=== PATIENT | female | born 1985 | race African-American/Black ===

== ENCOUNTER 2016-12-25 17:04 | Emergency (ER) | payer BC ==
[~2016-12-25] VITALS: Ht 144.8 cm; Wt 81.6 kg
[2016-12-25 17:12] VITALS: BP 137/77
[2016-12-25] MEDS ORDERED: NAPR500T8 PO (17:16)
[2016-12-25] MEDS ORDERED: ACET-704 PO (17:16)
[2016-12-25] MEDS ORDERED: AMOX875T PO (17:16)
--- NOTE | 2016-12-25 17:17 | PHYS DOC ---
Adult General Chief Complaint Chief Complaint: DENTAL PROBLEM HPI HPI Patient is a 31 year old female with history of hypertension who presents today with left upper gum dental pain that began yesterday. Patient states her wisdom tooth is growing. Patient states she has an appointment with her dentist next week and the dentist sent her to the emergency room for pain management as well as antibiotics. Patient denies any fever or trismus. Review of Systems Review of Systems Constitutional: Denies fever or chills [] Eyes: Denies change in visual acuity, redness, or eye pain [] HENT: Dental pain : Denies dysuria or hematuria [] Musculoskeletal: Denies back pain or joint pain [] Integument: Denies rash or skin lesions [] Neurologic: Denies headache, focal weakness or sensory changes [] Endocrine: Denies polyuria or polydipsia [] Physical Exam Physical Exam Constitutional: Well developed, well nourished, no acute distress, non-toxic appearance. [] HENT: Normocephalic, atraumatic, bilateral external ears normal, oropharynx moist, no oral exudates, nose normal. [] left wisdom tooth is cutting through gum with no gum redness. Scattered dental carriers throughout her teeth. Skin: Warm, dry, no erythema, no rash. [] Back: No tenderness, no CVA tenderness. [] Extremities: No tenderness, no cyanosis, no clubbing, ROM intact, no edema. [] Neurologic: Alert and oriented X 3, normal motor function, normal sensory function, no focal deficits noted. [] Psychologic: Affect normal, judgement normal, mood normal. [] EKG EKG [] Radiology/Procedures Radiology/Procedures [] Course & Med Decision Making Course & Med Decision Making Pertinent Labs and Imaging studies reviewed. (See chart for details) Patient is in the ED with dental pain from a wisdom tooth that has started growing. She was sent to the ED by the dentist for antibiotics and pain medicine. She was discharged with amoxicillin, naproxen, Tylenol 3 and follow-up with her dentist next week. Dragon Disclaimer Dragon Disclaimer This electronic medical record was generated, in whole or in part, using a voice recognition dictation system. Departure Departure Impression: Primary Impression: Dentalgia Additional Impression: Dental caries Disposition: 01 HOME, SELF-CARE Condition: STABLE Patient Instructions: Dental Caries Additional Instructions: You were seen for dental pain and dental caries. Follow-up with your dentist next week. Complete your antibiotics. Scripts Naproxen (NAPROXEN) 500 Mg Tablet. 1 TAB PO BID, #60 TAB 2 Refills Prov: HA WILSON APRN 12/25/16 Acetaminophen With Codeine (TYLENOL WITH CODEINE #3 TABLET) 1 Each Tablet 1 TAB PO PRN Q6HRS Y for PAIN, #30 TAB Prov: HA WILSON APRN 12/25/16 Amoxicillin (AMOXICILLIN) 875 Mg Tablet 1 TAB PO BID, #20 TAB Prov: HA WILSON APRN 12/25/16 Problem Qualifiers HA WILSON APRN December 25, 2016 17:17
== END 2016-12-25 17:27 | disposition home or self-care (01) ==
LOC: ER 17:27
DX: K02.9 Dental caries, unspecified (principal); K08.89 Other specified disorders of teeth and supporting structures; I10 Essential (primary) hypertension
CPT/HCPCS: 99283

== ENCOUNTER 2017-07-01 08:00 | Emergency (ER) | payer BC ==
[~2017-07-01] VITALS: Ht 144.8 cm; Wt 85.3 kg
[~2017-07-01 08:00] MED LIST: ACET-704 PO; AMOX875T PO; NAPR500T8 PO
[2017-07-01 08:08] VITALS: BP 146/94
[2017-07-01 08:21] LABS: BILIRUBIN,URINE NEGATIVE (NEG); GLUCOSE,URINE NEGATIVE (NEG); NITRITE,URINE NEGATIVE (NEG); PH,URINE 6.5; PROTEIN,URINE NEGATIVE (NEG-TRACE); UROBILINOGEN,URINE 0.2 mg/dL (0.2 mg/dL)
--- NOTE | 2017-07-01 08:24 | PHYS DOC ---
Past Medical History Past Medical History: Hypertension, Kidney Stone Past Surgical History: No Surgical History Alcohol Use: None Drug Use: None Adult General Chief Complaint Chief Complaint: FLANK PAIN HPI HPI Patient is a 31 year old female presents to the emergency department stating she's been having left flank since 7:00 last night. She states that she has vomited 5 times since last night. She states she's had chills denies any fever. She states that the pain is sharp in nature with no radiation. She states that pain is 7 out of 10. Patient states she took a naproxen around 8:00 last night no relief. Patient denies any abdominal pain denies any diarrhea. States she is taking medicines in the past with the last one being approximately one year ago. She denies any history of lithotripsy. She denies having a urologist. Review of Systems Review of Systems Constitutional: Denies fever or chills [] Eyes: Denies change in visual acuity, redness, or eye pain [] HENT: Denies nasal congestion or sore throat [] Respiratory: Denies cough or shortness of breath [] Cardiovascular: No additional information not addressed in HPI [] GI: Denies abdominal pain, nausea, vomiting, bloody stools or diarrhea [] : Denies dysuria or hematuria [] Musculoskeletal: c/o left flank pain Integument: Denies rash or skin lesions [] Neurologic: Denies headache, focal weakness or sensory changes [] Endocrine: Denies polyuria or polydipsia [] All other systems were reviewed and found to be within normal limits, except as documented in this note. Current Medications Current Medications Current Medications Medications (Trade) Dose Ordered Sig/Alexander Start Time Stop Time Status Last Admin Dose Admin Ketorolac Tromethamine (Toradol) 30 mg 1X ONCE 07/01/17 08:30 07/01/17 08:40 DC 07/01/17 08:59 30 MG Ondansetron HCl (Zofran) 4 mg 1X ONCE 07/01/17 08:30 07/01/17 08:40 DC 07/01/17 09:00 4 MG Sodium Chloride 1,000 ml @ 1,000 mls/hr 1X ONCE 07/01/17 08:30 07/01/17 09:29 DC 07/01/17 08:59 1,000 MLS/HR Allergies Allergies Allergies Coded Allergies Type Severity Reaction Last Updated Verified No Known Drug Allergies 12/25/16 No Physical Exam Physical Exam Constitutional: Well developed, well nourished, no acute distress, non-toxic appearance. [] HENT: Normocephalic, atraumatic, bilateral external ears normal, oropharynx moist, no oral exudates, nose normal. [] Eyes: PERRLA, EOMI, conjunctiva normal, no discharge. [] Neck: Normal range of motion, no tenderness, supple, no stridor. [] Cardiovascular:Heart rate regular rhythm, no murmur [] Lungs & Thorax: Bilateral breath sounds clear to auscultation [] Abdomen: Bowel sounds normal, soft, no tenderness, no masses, no pulsatile masses. [] Skin: Warm, dry, no erythema, no rash. [] Back: No tenderness, left CVA tenderness. [] Extremities: No tenderness, no cyanosis, no clubbing, ROM intact, no edema. [] Neurologic: Alert and oriented X 3, normal motor function, normal sensory function, no focal deficits noted. [] Psychologic: Affect normal, judgement normal, mood normal. [] Current Patient Data Vital Signs Vital Signs Date Time Temp Pulse Resp B/P (MAP) Pulse Ox O2 Delivery O2 Flow Rate FiO2 07/01/17 08:08 98.6 87 18 146/94 (111) 99 Room Air 98.6 Lab Values Laboratory Tests Test 07/01/17 08:00 07/01/17 08:13 07/01/17 09:20 Urine Collection Type Unknown Urine Color Yellow Urine Clarity Clear Urine pH 6.5 Urine Specific Rohwer 1.020 Urine Protein Negative mg/dL (NEG-TRACE) Urine Glucose (UA) Negative mg/dL (NEG) Urine Ketones (Stick) Negative mg/dL (NEG) Urine Blood Large (NEG) Urine Nitrite Negative (NEG) Urine Bilirubin Negative (NEG) Urine Urobilinogen Dipstick 0.2 mg/dL (0.2 mg/dL) Urine Leukocyte Esterase Small (NEG) Urine RBC Tntc /HPF (0-2) Urine WBC 1-4 /HPF (0-4) Urine Bacteria 0 /HPF (0-FEW) Urine Mucus Marked /LPF POC Urine HCG, Qualitative Hcg negative (Negative) White Blood Count 5.2 x10^3/uL (4.0-11.0) Red Blood Count 3.71 x10^6/uL (3.50-5.40) Hemoglobin 11.1 g/dL (12.0-15.5) L Hematocrit 33.4 % (36.0-47.0) L Mean Corpuscular Volume 90 fL (79-100) Mean Corpuscular Hemoglobin 30 pg (25-35) Mean Corpuscular Hemoglobin Concent 33 g/dL (31-37) Red Cell Distribution Width 14.9 % (11.5-14.5) H Platelet Count 285 x10^3/uL (140-400) Neutrophils (%) (Auto) 58 % (31-73) Lymphocytes (%) (Auto) 33 % (24-48) Monocytes (%) (Auto) 8 % (0-9) Eosinophils (%) (Auto) 1 % (0-3) Basophils (%) (Auto) 1 % (0-3) Neutrophils # (Auto) 3.0 x10^3uL (1.8-7.7) Lymphocytes # (Auto) 1.7 x10^3/uL (1.0-4.8) Monocytes # (Auto) 0.4 x10^3/uL (0.0-1.1) Eosinophils # (Auto) 0.1 x10^3/uL (0.0-0.7) Basophils # (Auto) 0.0 x10^3/uL (0.0-0.2) Sodium Level 144 mmol/L (136-145) Potassium Level 4.1 mmol/L (3.5-5.1) Chloride Level 107 mmol/L (98-107) Carbon Dioxide Level 29 mmol/L (21-32) Anion Gap 8 (6-14) Blood Urea Nitrogen 9 mg/dL (7-20) Creatinine 0.6 mg/dL (0.6-1.0) Estimated GFR (Cockcroft-Gault) 139.3 BUN/Creatinine Ratio 15 (6-20) Glucose Level 87 mg/dL (70-99) Calcium Level 8.6 mg/dL (8.5-10.1) Total Bilirubin 0.2 mg/dL (0.2-1.0) Aspartate Amino Transferase (AST) 20 U/L (15-37) Alanine Aminotransferase (ALT) 18 U/L (14-59) Alkaline Phosphatase 60 U/L (46-116) Total Protein 8.0 g/dL (6.4-8.2) Albumin 3.2 g/dL (3.4-5.0) L Albumin/Globulin Ratio 0.7 (1.0-1.7) L Laboratory Tests 07/01/17 09:20 Laboratory Tests 07/01/17 09:20 EKG EKG [] Radiology/Procedures Radiology/Procedures [facility] [address] [place] [address] IMAGING REPORT Signed PATIENT: ELIZABETH BARRIENTOS ACCOUNT: [id number] : 1985 LOCATION: ER AGE: 31 SEX: F EXAM STATUS: REG ER ORD. PHYSICIAN: DALTON RODRIGUEZ APRN REASON: left flank pain hx of kidney stones PROCEDURE: CT ABDOMEN PELVIS WO CONTRAST CT abdomen and pelvis without contrast 07/01/2017 Clinical indication: Left flank pain. Comparison: None. Technique: Multiple CT images of the abdomen and pelvis were obtained without contrast according to standard protocol PQRS Compliance Statement: One or more of the following individualized dose reduction techniques were utilized for this examination: 1. Automated exposure control 2. Adjustment of the mA and/or kV according to patient size 3. Use of iterative reconstruction technique Abdomen and pelvis findings: Heart size is normal. Visualized lung bases are clear. Evaluation of the solid abdominal pelvic viscera, lymphadenopathy and vasculature is limited in the absence of intravenous contrast. Unenhanced contours of the liver, spleen, adrenal glands, pancreas and kidneys are grossly unremarkable. There is an 8 mm calcification in the left hemipelvis favored to represent a phlebolith. No nephrolithiasis. No hydroureteronephrosis. Mildly distended and unopacified urine bladder unremarkable with no intraluminal radiopaque calculi. Prior cholecystectomy. Abdominal aorta is normal in caliber. Appendix is normal in appearance. Small and large bowel loops are normal in caliber without obstruction. No abdominal free fluid. There is diastases of the anterior rectus abdominis musculature. No definite abdominal or pelvic lymphadenopathy. Uterus is present, though incompletely evaluated by CT. There are no destructive osseous lesions. Impression: 1. No nephrolithiasis or hydroureteronephrosis. 2. No noncontrast CT evidence of acute abdominal or pelvic process. DICTATED and SIGNED BY: OTILIA PARKER MD DATE: 07/01/17 [id number] CC: SONIA VANN MD; DALTON RODRIGUEZ APRN; UNKNOWN PCP NAME ~ [] Course & Med Decision Making Course & Med Decision Making Pertinent Labs and Imaging studies reviewed. (See chart for details) CT scan of the abdomen and pelvis was negative for any kidney stones. Urine was positive for leukocyte esterase as well as blood however the patient is on her menstrual cycle. Patient's CBC and chemistry was within normal limits. Will be discharged home on Macrobid as well as Zofran and she states she's been having some nausea and vomiting. Patient was recommended to avoid cranberry juice cocktail, carbonate beverages, caffeine, and fruits, and alcohol. She was also encouraged to drink plenty of fluids such as water and cranberry juice. Patient agrees with discharge instructions and treatment regimen. [] Dragon Disclaimer Dragon Disclaimer This electronic medical record was generated, in whole or in part, using a voice recognition dictation system. Departure Departure Impression: Primary Impression: Flank pain Additional Impression: UTI (urinary tract infection) Disposition: HOME, SELF-CARE Condition: STABLE Referrals: UNKNOWN PCP NAME (PCP) Patient Instructions: Flank Pain, [id number], Urinary Tract Infection, Easy- to-Read Additional Instructions: Activity as tolerated Medications as prescribed Drink plenty of fluids such as water and cranberry juice Avoid cranberry juice cocktail, carbonated beverages, citrus fruits, caffeine and alcohol Clear liquid diet for the next 24 hours Followup with primary care provider in 7-10 days Return to emergency department as needed for signs and symptoms that become worse. Scripts Ondansetron (ZOFRAN ODT) 4 Mg Tab.rapdis 1 TAB SL Q8HRS, #10 TAB Prov: DALTON RODRIGUEZ APRN 07/01/17 Nitrofurantoin Monohyd/M-Cryst (MACROBID 100 MG CAPSULE) 100 Mg Capsule 1 CAP PO BID, #14 CAP Prov: DALTON RODRIGUEZ APRN 07/01/17 Problem Qualifiers Additional Impression: UTI (urinary tract infection) Urinary tract infection type: site unspecified DALTON RODRIGUEZ APRN Jul 01, 2017 08:24
[2017-07-01] MEDS ORDERED: IV NORMAL SALINE 1000ML BAG 1,000 ML IV ONE (08:30)
[2017-07-01] MEDS ORDERED: KETOROLAC 30 MG/ML INJ. IV ONE (08:30)
[2017-07-01] MEDS ORDERED: ONDANSETRON PF 4 MG/2 ML VIAL. IV ONE (08:30)
[2017-07-01 08:34] LABS: BACTERIA,URINE 0 /HPF (0-FEW); RBC,URINE TNTC /HPF (0-2)
--- NOTE | 2017-07-01 09:02 | RAD ---
CT abdomen and pelvis without contrast 07/01/2017 Clinical indication: Left flank pain. Comparison: None. Technique: Multiple CT images of the abdomen and pelvis were obtained without contrast according to standard protocol PQRS Compliance Statement: One or more of the following individualized dose reduction techniques were utilized for this examination: 1. Automated exposure control 2. Adjustment of the mA and/or kV according to patient size 3. Use of iterative reconstruction technique Abdomen and pelvis findings: Heart size is normal. Visualized lung bases are clear. Evaluation of the solid abdominal pelvic viscera, lymphadenopathy and vasculature is limited in the absence of intravenous contrast. Unenhanced contours of the liver, spleen, adrenal glands, pancreas and kidneys are grossly unremarkable. There is an 8 mm calcification in the left hemipelvis favored to represent a phlebolith. No nephrolithiasis. No hydroureteronephrosis. Mildly distended and unopacified urine bladder unremarkable with no intraluminal radiopaque calculi. Prior cholecystectomy. Abdominal aorta is normal in caliber. Appendix is normal in appearance. Small and large bowel loops are normal in caliber without obstruction. No abdominal free fluid. There is diastases of the anterior rectus abdominis musculature. No definite abdominal or pelvic lymphadenopathy. Uterus is present, though incompletely evaluated by CT. There are no destructive osseous lesions. Impression: 1. No nephrolithiasis or hydroureteronephrosis. 2. No noncontrast CT evidence of acute abdominal or pelvic process.
[2017-07-01 09:34] LABS: BASO % 1 % (0-3); EOS % 1 % (0-3); HEMATOCRIT 33.4 % (36.0-47.0); HEMOGLOBIN 11.1 g/dL (12.0-15.5); LYMPH # 1.7 x10^3/uL (1.0-4.8); LYMPH % 33 % (24-48); MEAN CORPUSCULAR HEMOGLOBIN 30 pg (25-35); MEAN CORPUSCULAR HGB CONC 33 g/dL (31-37); MEAN CORPUSCULAR VOLUME 90 fL (79-100); MONO % 8 % (0-9); NEUT % 58 % (31-73); PLATELET COUNT 285 x10^3/uL (140-400); RED BLOOD COUNT 3.71 x10^6/uL (3.50-5.40); RED CELL DISTRIBUTION WIDTH 14.9 % (11.5-14.5); WHITE BLOOD COUNT 5.2 x10^3/uL (4.0-11.0)
[2017-07-01 09:36] LABS: CALCIUM 8.6 mg/dL (8.5-10.1); CREATININE 0.6 mg/dL (0.6-1.0); GFR 139.3; POTASSIUM 4.1 mmol/L (3.5-5.1)
[2017-07-01 09:41] LABS: ALBUMIN 3.2 g/dL (3.4-5.0); ALBUMIN/GLOBULIN RATIO 0.7 (1.0-1.7); TOTAL BILIRUBIN 0.2 mg/dL (0.2-1.0)
[2017-07-01] MEDS ORDERED: NITR100C62 PO (09:54)
[2017-07-01] MEDS ORDERED: ONDA4TAB10 SL (09:54)
== END 2017-07-01 10:00 | disposition home or self-care (01) ==
LOC: ER 08:00
DX: N39.0 Urinary tract infection, site not specified (principal); I10 Essential (primary) hypertension; Z87.442 Personal history of urinary calculi
CPT/HCPCS: 36415; 74176; 80053; 81001; 81025; 85025; 87086; 96361; 96374; 96375; 99285; J1885; J2405; J7030